=== PATIENT | female | born 1975 | race Caucasian/White ===

== ENCOUNTER 2019-11-07 21:03 | Emergency (ER) | payer BC, OTHER ==
[~2019-11-07] VITALS: Ht 165.1 cm; Wt 132.9 kg
[~2019-11-07 21:03] MED LIST: ALEVE220 MG PO; MOTRIN200 MG PO; TYLENOL WITH C1 EACH PO; VITAMIN B12-FO1 EACH PO
--- NOTE | 2019-11-07 21:15 | Emergency Department Note ---
History of Present Illnes History of Present Illness History of Present Illness This is a 44 year old female presents to the ED for 5 day h/o of cough with fevers 2 days prior. 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 Previous 3 COVID tests on her was negative. 4th COVID test pending. Onset (how long ago): day(s) (5) Severity: moderate Duration (how long): day(s) (5) Progression: worsening Chronicity: new Context: Reports recent illness Relieving factors: none Exacerbating factors: none Associated symptoms: Reports cough, Reports fever/chills Treatments prior to arrival: none Previous service: tests performed Past Medical/Family History Physician Review I have reviewed the patient's past medical and family history. Any updates have been documented here. Past Medical History Recent Fever: Yes Clinical Suspicion of Infectio: Yes New/Unexplained Change in Ment: No Social History Smoking Cessation: Never Smoker Alcohol Use: None Any Illegal Drug Use: No Review of Systems Review of Systems Constitutional: Reports fever EENTM: Reports no symptoms Cardiovascular: Reports no symptoms Respiratory: Reports cough Gastrointestinal: Reports no symptoms Genitourinary: Reports no symptoms Musculoskeletal: Reports no symptoms Integumentary: Reports no symptoms Neurological: Reports no symptoms Psychological: Reports no symptoms Endocrine: Reports no symptoms Hematological/Lymphatic: Reports no symptoms Physical Exam Related Data Allergies: Coded Allergies: No Known Drug Allergies (Verified Allergy, Mild, 11/30/09) Vital signs reviewed: Yes Physical Exam CONSTITUTIONAL Constitutional: Present morbidly obese, Present other (anxious); Absent ill appearing HENT HENT: Present normocephalic, Present atraumatic, Present oropharynx clear/moist, Present nose normal HENT L/R: Present left ext ear normal, Present right ext ear normal EYES Eyes: Reports PERRL, Reports conjunctivae normal NECK Neck: Present ROM normal PULMONARY Pulmonary: Present effort normal, Present breath sounds normal CARDIOVASCULAR Cardiovascular: Present regular rhythm, Present heart sounds normal, Present capillary refill normal, Present normal rate GASTROINTESTINAL Abdominal: Present soft, Present nontender, Present bowel sounds normal GENITOURINARY Genitourinary: Present exam deferred SKIN Skin: Present warm, Present dry MUSCULOSKELETAL Musculoskeletal: Present ROM normal NEUROLOGICAL Neurological: Present alert, Present oriented x 3, Present no gross motor or sensory deficits PSYCHOLOGICAL Psychological: Present mood/affect normal, Present judgement normal Results Imaging Imaging results reviewed: Yes Impressions [place] [id number] Patient Name: DANA JOSHUA MR #: [id number] : 1975 Age/Sex: 44/F Req #: [id number] Adm Physician: Ordered by: JONA DILL DO Report #: [id number] Location: ER Room/Bed: Procedure: [id number] DX/CHEST SINGLE (PORTABLE) Exam Date: 11/07/19 Exam Time: 2239 REPORT STATUS: Signed Examination: Single AP view of the chest. COMPARISON: None. INDICATION: Cough, exposure to COVID. IMPRESSION: 1. Lines and Tubes: None 2. Lungs are well inflated. Patchy bibasilar opacities, left greater than right and to a lesser degree in the left midlung, which may represent pneumonia, including viral, in the appropriate clinical setting. 3. Cardiomediastinal silhouette is normal. Central pulmonary venous prominence.. 4. No acute bony abnormalities. Signed by: Dr. Piotr Rodgers M.D. on 11/07/2019 10:59 PM Dictated By: PIOTR RODGERS MD 60 Transcribed By: PATRICIA on 11/07/192258 COPY TO: JONA DILL DO~ Assessment & Plan Medical Decision Making MDM 44 yof with fever and myalgias. (+) contact with family members with similiar symptoms. COVID-19 highly suspected but testing deferred secondary to stable vital signs and high oxygen saturation on RA. Patient to be given Rx Azithromycin and albuterol. Patient to be given resources for outpatient testing center Assessment & Plan Final Impression: (1) Person under investigation for COVID-19 Home Meds Reported Medications Acetaminophen With Codeine (TYLENOL WITH CODEINE #3 TABLET) 1 Each Tablet, 300 MG PO, TAB 09/11/14 Cyanocobalamin/Folic Acid (VITAMIN D42-CJIJG ACID TABLET) 1 Each Tablet, 1 DOSE PO DAILY 09/11/14 Naproxen Sodium (ALEVE) 220 Mg Tablet, 1 DOSE PO PRN PRN for PAIN 09/11/14 JONA DILL DO Nov 07, 2019 21:15
--- NOTE | 2019-11-07 23:02 | Diagnostic Imaging Report ---
Examination: Single AP view of the chest. COMPARISON: None. INDICATION: Cough, exposure to COVID. IMPRESSION: 1. Lines and Tubes: None 2. Lungs are well inflated. Patchy bibasilar opacities, left greater than right and to a lesser degree in the left midlung, which may represent pneumonia, including viral, in the appropriate clinical setting. 3. Cardiomediastinal silhouette is normal. Central pulmonary venous prominence.. 4. No acute bony abnormalities. Signed by: Dr. Amish Rodgers M.D. on 11/07/2019 10:59 PM
[2019-11-07 23:37] VITALS: BP 129/76
== END 2019-11-07 23:41 | disposition home or self-care (01) ==
LOC: ER 22:00
DX: Z20.828 Contact with and (suspected) exposure to other viral communicable diseases (principal); R50.9 Fever, unspecified; R05 Cough; R06.02 Shortness of breath
CPT/HCPCS: 71045; 99283

== ENCOUNTER 2023-01-22 07:47 | Outpatient (RCR) | payer OTHER | END 2023-02-21 | LOC: PT 07:47 | PROVIDERS: ATTEND Internal Medicine | DX: M54.50 Low back pain, unspecified (principal) ==

== ENCOUNTER 2023-03-06 13:00 | Outpatient (RCR) | payer OTHER | END 2023-03-23 | LOC: PT 13:00 | PROVIDERS: ATTEND Internal Medicine | DX: M54.50 Low back pain, unspecified (principal); M62.81 Muscle weakness (generalized); M53.86 Other specified dorsopathies, lumbar region ==

== ENCOUNTER → 2024-01-22 | Outpatient (RCR) | payer OTHER | LOC: PT 11:03 | PROVIDERS: ATTEND Anesthesiology Pain Medicine | DX: M54.16 Radiculopathy, lumbar region (principal) ==

== ENCOUNTER → 2024-02-22 | Outpatient (RCR) | payer OTHER | LOC: PT 01-31 07:30 | PROVIDERS: ATTEND Anesthesiology Pain Medicine | DX: M54.16 Radiculopathy, lumbar region (principal) ==

== ENCOUNTER 2024-03-20 11:00 | Outpatient (RCR) | payer OTHER | END 2024-03-23 | LOC: PT 11:00 | PROVIDERS: ATTEND Anesthesiology Pain Medicine | DX: M54.16 Radiculopathy, lumbar region (principal) ==